=== PATIENT | female | born 1990 | race Caucasian/White ===

== ENCOUNTER 2017-03-09 05:31 | Inpatient (IN) | payer MEDICAID ==
[2017-03-09] MEDS: AMPICILLIN 2 GM/NS (PMX) 100 ML IV (06:17)
[2017-03-09] MEDS: LACTATED RINGER'S 1,000 ML IV (06:18)
[2017-03-09] MEDS ORDERED: METHYLERGONOVINE 0.2 MG INJ IM (06:30)
[2017-03-09] MEDS ORDERED: LIDOCAINE 1% (MPF) 30 ML INJ INJ (06:30)
[2017-03-09] MEDS ORDERED: MISOPROSTOL 200 MCG TAB PR (06:30)
[2017-03-09] MEDS ORDERED: OXYTOCIN 30 UNITS/LR 500 ML IV (06:30)
[2017-03-09] MEDS ORDERED: BUTORPHANOL 2 MG INJ IV (06:30)
[2017-03-09] MEDS ORDERED: CARBOPROST 250 MCG INJ IM (06:30)
[2017-03-09 06:41] LABS: ADD MAN DIFF? NO
[2017-03-09 06:48] LABS: BASOPHILS % 0.3 % (0.0-2.0); EOSINOPHILS % 0.2 % (0.0-7.0); HEMATOCRIT 34.5 % (37.0-47.0); LYMPHOCYTES # 1.4 10^3/ul (0.8-2.9); LYMPHOCYTES % 14.7 % (15.0-51.0); MEAN CORPUSCULAR HEMOGLOBIN 30.2 pg (29.0-33.0); MEAN CORPUSCULAR HGB CONC 34.8 g/dl (32.0-37.0); MEAN CORPUSCULAR VOLUME 86.9 fl (82.0-101.0); MEAN PLATELET VOLUME 12.3 fl (7.4-10.4); MONOCYTE # 0.6 10^3/ul (0.3-0.9); MONOCYTES % 6.1 % (0.0-11.0); NEUTROPHIL # 7.3 10^3/ul (1.6-7.5); NEUTROPHILS % 78.5 % (39.0-77.0); PLATELET COUNT 191 10^3/UL (140-415); RED BLOOD COUNT 3.97 10^6/ul (4.20-5.40); RED CELL DISTRIBUTION WIDTH 12.8 % (11.5-14.5)
[2017-03-09 06:48] LABS: WHITE BLOOD COUNT 9.3 10^3/ul (4.8-10.8)
[2017-03-09 07:05] LABS: INR 0.82; PROTIME 11.4 Sec (11.9-14.9); PT RATIO 0.9
[2017-03-09 07:06] LABS: PARTIAL THROMBOPLASTIN TIME 26.6 Sec (25.0-35.0)
[2017-03-09 07:53] LABS: HEPATITIS B SURFACE ANTIGEN NEGATIVE (NEGATIVE)
[2017-03-09] MEDS: OXYTOCIN 30 UNITS/LR 500 ML IV ×3 (08:18→13:25)
[2017-03-09] MEDS: IBUPROFEN 600 MG TAB PO ×4 (08:34→23:47)
[2017-03-09] MEDS ORDERED: HYDROCODONE/APAP (5/325) TAB PO ×2 (10:30)
[2017-03-09] MEDS ORDERED: OXYCODONE/ASPIRIN (4.88/325) TAB PO (10:30)
[2017-03-09] MEDS ORDERED: AMPICILLIN 1 GM/NS (PMX) 50 ML IV (10:30)
[2017-03-09] MEDS ORDERED: ONDANSETRON 4 MG INJ IV (10:30)
[2017-03-09] MEDS ORDERED: DIBUCAINE 1% 30 GM OINT PR (10:30)
[2017-03-09] MEDS ORDERED: ACETAMINOPHEN 325 MG TAB PO (10:30)
[2017-03-09] MEDS: WITCH HAZEL/GLYCERIN PAD PR (11:35)
[2017-03-09] MEDS: BENZOCAINE 20% 56 ML SPRAY TOP (11:35)
[2017-03-09] MEDS: LANOLIN 7 GM TUBE TOP (11:35)
[2017-03-09] MEDS: OXYCODONE/ASPIRIN (4.88/325) TAB PO (11:38)
[2017-03-09 19:54] LABS: RAPID PLASMA REAGIN NONREACTIVE (NR)
[2017-03-09] MEDS: SENNA/DOCUSATE NA (8.6MG/50MG) TAB PO (21:15)
[2017-03-10] MEDS: IBUPROFEN 600 MG TAB PO ×4 (05:18→23:32)
[2017-03-10 08:57] LABS: ADD MAN DIFF? NO
[2017-03-10] MEDS: SENNA/DOCUSATE NA (8.6MG/50MG) TAB PO ×2 (09:00→20:31)
[2017-03-10 09:11] LABS: WHITE BLOOD COUNT 7.5 10^3/ul (4.8-10.8)
[2017-03-10 09:11] LABS: BASOPHILS % 0.5 % (0.0-2.0); EOSINOPHILS % 0.5 % (0.0-7.0); HEMATOCRIT 31.5 % (37.0-47.0); HEMOGLOBIN 10.4 g/dl (12.0-16.0); LYMPHOCYTES # 2.3 10^3/ul (0.8-2.9); LYMPHOCYTES % 30.4 % (15.0-51.0); MEAN CORPUSCULAR HEMOGLOBIN 29.5 pg (29.0-33.0); MEAN CORPUSCULAR VOLUME 89.5 fl (82.0-101.0); MEAN PLATELET VOLUME 12.2 fl (7.4-10.4); MONOCYTE # 0.5 10^3/ul (0.3-0.9); MONOCYTES % 6.5 % (0.0-11.0); NEUTROPHIL # 4.6 10^3/ul (1.6-7.5); NEUTROPHILS % 61.7 % (39.0-77.0); PLATELET COUNT 175 10^3/UL (140-415); RED BLOOD COUNT 3.52 10^6/ul (4.20-5.40); RED CELL DISTRIBUTION WIDTH 13.2 % (11.5-14.5)
[2017-03-10] MEDS: INFLUENZA VIRUS VACCINE 0.5 ML (DISPENSING) IM* (14:29)
[2017-03-11] MEDS: IBUPROFEN 600 MG TAB PO ×2 (05:39→11:34)
[2017-03-11] MEDS: MEASLES,MUMPS,RUBELLA VACCINE INJ SC* (09:34)
[2017-03-11] MEDS: SENNA/DOCUSATE NA (8.6MG/50MG) TAB PO (11:34)
== END 2017-03-11 12:49 | disposition home or self-care (01) | DRG 775 ==
LOC: OBT 05:31 → L-D 05:32 → OBT 06:10 → L-D 06:11 → PP1 10:10
PROVIDERS: Obstetrics & Gynecology
PROC: 10E0XZZ Delivery of Products of Conception, External Approach (ICD-10-PCS; principal; 2017-03-09)
DX: O48.0 Post-term pregnancy (principal); Z37.0 Single live birth; Z3A.41 41 weeks gestation of pregnancy
CPT/HCPCS: 85025; 85610; 85730; 86592; 86900; 86901; 87340; 90686

== ENCOUNTER 2018-02-24 20:18 | Inpatient (IN) | payer OTHER ==
[2018-02-24] MEDS ORDERED: MISOPROSTOL 200 MCG TAB PR (21:00)
[2018-02-24] MEDS ORDERED: IBUPROFEN 600 MG TAB PO (21:00)
[2018-02-24] MEDS ORDERED: LIDOCAINE 1% (MPF) 30 ML INJ INJ (21:00)
[2018-02-24] MEDS ORDERED: LACTATED RINGER'S 1,000 ML IV (21:00)
[2018-02-24] MEDS ORDERED: CARBOPROST 250 MCG INJ IM (21:00)
[2018-02-24] MEDS ORDERED: OXYTOCIN 30 UNITS/LR 500 ML IV (21:00)
[2018-02-24 21:37] LABS: ADD MAN DIFF? NO
[2018-02-24 21:38] LABS: WHITE BLOOD COUNT 6.2 10^3/ul (4.8-10.8)
[2018-02-24 21:38] LABS: BASOPHILS % 0.5 % (0.0-2.0); EOSINOPHILS # 0.1 10^3/ul (0.0-0.5); EOSINOPHILS % 2.1 % (0.0-7.0); HEMATOCRIT 31.9 % (37.0-47.0); HEMOGLOBIN 10.7 g/dl (12.0-16.0); LYMPHOCYTES # 1.9 10^3/ul (0.8-2.9); LYMPHOCYTES % 30.4 % (15.0-51.0); MEAN CORPUSCULAR HGB CONC 33.5 g/dl (32.0-37.0); MEAN CORPUSCULAR VOLUME 89.4 fl (82.0-101.0); MEAN PLATELET VOLUME 11.1 fl (7.4-10.4); MONOCYTE # 0.5 10^3/ul (0.3-0.9); MONOCYTES % 8.4 % (0.0-11.0); NEUTROPHIL # 3.6 10^3/ul (1.6-7.5); NEUTROPHILS % 58.4 % (39.0-77.0); PLATELET COUNT 195 10^3/UL (140-415); RED BLOOD COUNT 3.57 10^6/ul (4.20-5.40); RED CELL DISTRIBUTION WIDTH 12.9 % (11.5-14.5)
[2018-02-24 21:57] LABS: INR 0.86; PROTIME 11.8 Sec (11.9-14.9); PT RATIO 0.9
[2018-02-24 21:58] LABS: PARTIAL THROMBOPLASTIN TIME 25.2 Sec (23.0-35.0)
[2018-02-24 22:34] LABS: HEPATITIS B SURFACE ANTIGEN NEGATIVE (NEGATIVE)
[2018-02-24] MEDS: LACTATED RINGER'S 1,000 ML IV (23:30)
[2018-02-25] MEDS: LACTATED RINGER'S 1,000 ML IV ×3 (10:10→21:00)
[2018-02-25] MEDS: MISOPROSTOL 50 MCG CAPSULE PO (12:56)
[2018-02-25 15:35] LABS: RAPID PLASMA REAGIN NONREACTIVE (NR)
[2018-02-25 16:05] LABS: ADD UMIC YES; UR ASCORBIC ACID NEGATIVE (NEGATIVE); UR BILIRUBIN (Dip) NEGATIVE (NEGATIVE); UR BLOOD (Dip) 2+ mg/dL (NEGATIVE); UR CLARITY CLEAR (CLEAR); UR COLOR STRAW (YELLOW); UR GLUCOSE (Dip) NEGATIVE (NEGATIVE); UR KETONES (Dip) 1+ mg/dL (NEGATIVE); UR LEUKOCYTE ESTERASE (Dip) 2+ Leu/ul (NEGATIVE); UR NITRITE (Dip) NEGATIVE (NEGATIVE); UR RBC 1 /HPF (0-5); UR SPECIFIC GRAVITY (Dip) 1.011 (1.003-1.030); UR TOTAL PROTEIN (Dip) NEGATIVE (NEGATIVE); UR UROBILINOGEN (Dip) 1+ mg/dL (NEGATIVE); UR WBC 26 /HPF (0-5)
[2018-02-25] MEDS ORDERED: OXYTOCIN 30 UNITS/LR 500 ML IV ×2 (16:30→23:30)
[2018-02-25] MEDS: CEFAZOLIN 2 GM/50 ML (PMX) 50 ML IVPB (17:22)
[2018-02-25] MEDS: BUTORPHANOL 2 MG INJ IV (17:53)
[2018-02-25] MEDS: METHYLERGONOVINE 0.2 MG INJ IM (19:11)
[2018-02-25] MEDS: OXYTOCIN 30 UNITS/LR 500 ML IV ×2 (19:25→20:58)
[2018-02-25] MEDS ORDERED: METHYLERGONOVINE 0.2 MG INJ IM (23:30)
[2018-02-25] MEDS ORDERED: MISOPROSTOL 200 MCG TAB PR (23:30)
[2018-02-25] MEDS ORDERED: DIBUCAINE 1% 30 GM OINT TOP (23:30)
[2018-02-25] MEDS ORDERED: CARBOPROST 250 MCG INJ IM (23:30)
[2018-02-26] MEDS: OXYTOCIN 30 UNITS/LR 500 ML IV (00:55)
[2018-02-26] MEDS: OXYCODONE/ASPIRIN (4.88/325) TAB PO ×2 (03:54→15:13)
[2018-02-26] MEDS: WITCH HAZEL/GLYCERIN PAD PR (03:54)
[2018-02-26] MEDS: LANOLIN HPA 1 PKT TOP (03:54)
[2018-02-26] MEDS: BENZOCAINE 20% 56 ML SPRAY TOP (03:54)
[2018-02-26] MEDS: LACTATED RINGER'S 1,000 ML IV ×3 (05:00→21:00)
[2018-02-26] MEDS: IBUPROFEN 600 MG TAB PO ×4 (06:00→17:36)
[2018-02-26 09:06] LABS: ADD MAN DIFF? NO
[2018-02-26 09:13] LABS: WHITE BLOOD COUNT 11.7 10^3/ul (4.8-10.8)
[2018-02-26 09:13] LABS: BASOPHILS % 0.3 % (0.0-2.0); EOSINOPHILS # 0.1 10^3/ul (0.0-0.5); EOSINOPHILS % 0.4 % (0.0-7.0); HEMATOCRIT 28.1 % (37.0-47.0); HEMOGLOBIN 9.4 g/dl (12.0-16.0); LYMPHOCYTES % 17.2 % (15.0-51.0); MEAN CORPUSCULAR HEMOGLOBIN 29.7 pg (29.0-33.0); MEAN CORPUSCULAR HGB CONC 33.5 g/dl (32.0-37.0); MEAN CORPUSCULAR VOLUME 88.6 fl (82.0-101.0); MEAN PLATELET VOLUME 11.7 fl (7.4-10.4); MONOCYTE # 0.8 10^3/ul (0.3-0.9); MONOCYTES % 7.2 % (0.0-11.0); NEUTROPHIL # 8.7 10^3/ul (1.6-7.5); NEUTROPHILS % 74.5 % (39.0-77.0); PLATELET COUNT 186 10^3/UL (140-415); RED BLOOD COUNT 3.17 10^6/ul (4.20-5.40); RED CELL DISTRIBUTION WIDTH 12.8 % (11.5-14.5)
[2018-02-26] MEDS: SENNA/DOCUSATE NA (8.6MG/50MG) TAB PO ×2 (11:41→21:59)
[2018-02-26] MEDS: DOCUSATE SODIUM 100 MG CAP PO ×2 (12:00→21:59)
[2018-02-26] MEDS ORDERED: POLYSACCHARIDE IRON COMPLEX CAP PO (21:00)
[2018-02-26] MEDS: POLYSACCHARIDE IRON COMPLEX CAP PO (21:59)
[2018-02-27] MEDS: IBUPROFEN 600 MG TAB PO ×3 (00:11→11:38)
[2018-02-27] MEDS: LACTATED RINGER'S 1,000 ML IV (05:00)
[2018-02-27] MEDS: SENNA/DOCUSATE NA (8.6MG/50MG) TAB PO (08:45)
[2018-02-27] MEDS: POLYSACCHARIDE IRON COMPLEX CAP PO (08:45)
[2018-02-27] MEDS: DOCUSATE SODIUM 100 MG CAP PO (08:46)
[2018-02-27] MEDS: OXYCODONE/ASPIRIN (4.88/325) TAB PO (08:46)
== END 2018-02-27 15:55 | disposition home or self-care (01) | DRG 807 ==
LOC: OBT 20:18 → L-D 02-25 02:07 → PP1 02-25 21:18 → L-D 20:47 → OBT 22:06 → L-D 22:08
PROVIDERS: Obstetrics & Gynecology
PROC: 4A1HXCZ Monitoring of Products of Conception, Cardiac Rate, External Approach (ICD-10-PCS; 2018-02-24)
PROC: 10E0XZZ Delivery of Products of Conception, External Approach (ICD-10-PCS; principal; 2018-02-25)
DX: O48.0 Post-term pregnancy (principal); Z37.0 Single live birth; Z3A.40 40 weeks gestation of pregnancy; O70.0 First degree perineal laceration during delivery; O99.02 Anemia complicating childbirth; D64.9 Anemia, unspecified
CPT/HCPCS: 76815; 76818; 81001; 85025; 85610; 85730; 86592; 86850; 86900; 86901; 87086; 87340